=== PATIENT | male | born 1945 | race Caucasian/White ===

== ENCOUNTER 2020-08-10 06:36 | Day surgery (SDC) | payer OTHER ==
[~2020-08-10] VITALS: Ht 172.7 cm; Wt 80.1 kg
[~2020-08-10 06:36] MED LIST: ASPI-1071 PO; HYDR-3965 PO; METH500C6 PO; NITR0.4T51 SL; SIMV-42 PO; ZES10T PO
[2020-08-10] MEDS ORDERED: LISI20TA28 PO (07:04)
[2020-08-10] MEDS ORDERED: LEVO125T68 PO (07:04)
[2020-08-10] MEDS ORDERED: SIMV-42 PO (07:04)
[2020-08-10 07:24] VITALS: BP 123/56
[2020-08-10 08:50] VITALS: BP 147/67
[2020-08-10 09:00] VITALS: BP 144/66
[2020-08-10] MEDS ORDERED: normal saline 1000ml 1,000 ML IV SCH (09:05)
[2020-08-10 09:15] VITALS: BP 144/66
== END 2020-08-10 09:25 | disposition home or self-care (01) ==
LOC: SSTAY O 06:36
PROVIDERS: ATTEND Radiology Vascular & Interventional Radiology
DX: R59.0 Localized enlarged lymph nodes (principal); Z87.891 Personal history of nicotine dependence; Z79.899 Other long term (current) drug therapy; Z72.89 Other problems related to lifestyle; Z85.850 Personal history of malignant neoplasm of thyroid
CPT/HCPCS: 10005; 38505; 76942; 88173; 88305

== ENCOUNTER 2020-11-17 15:20 | Emergency (ER) | payer OTHER ==
[~2020-11-17] VITALS: Ht 172.7 cm; Wt 75.9 kg
[~2020-11-17 15:20] MED LIST changes: -ASPI-1071 PO; -HYDR-3965 PO; +LEVO125T68 PO; +LISI20TA28 PO; -METH500C6 PO; -NITR0.4T51 SL; -ZES10T PO
[2020-11-17 16:18] VITALS: BP 112/53
--- NOTE | 2020-11-17 18:40 | NUR ---
RADHA GUNTER (NEPHEW): [phone] CALL FOR RIDE HOME IF DAUGHTER DOES NOT ANSWER
[2020-11-17] MEDS ORDERED: LIDOcaine Viscous 15ml cup MM PRN (21:25)
== END 2020-11-17 22:06 | disposition home or self-care (01) ==
LOC: ER 15:20
DX: J02.9 Acute pharyngitis, unspecified (principal); K13.79 Other lesions of oral mucosa; D09.9 Carcinoma in situ, unspecified; R13.10 Dysphagia, unspecified; Z85.9 Personal history of malignant neoplasm, unspecified; Z72.89 Other problems related to lifestyle; Z60.2 Problems related to living alone; Z79.899 Other long term (current) drug therapy
CPT/HCPCS: 99283